=== PATIENT | female | born 1995 | race Caucasian/White ===

== ENCOUNTER 2016-11-16 16:41 | Emergency (ER) | payer OTHER ==
[~2016-11-16] VITALS: Ht 172.7 cm; Wt 60.0 kg
[2016-11-16 17:04] VITALS: Ht 172.7 cm; Wt 60.0 kg
[2016-11-16] MEDS ORDERED: SOD CHLORIDE 0.9% 1,000 ML IV STA (19:17)
[2016-11-16] MEDS ORDERED: ONDANSETRON 4 MG INJ IV STA (19:17)
[2016-11-16] MEDS ORDERED: KETOROLAC 30 MG INJ IV STA (19:17)
[2016-11-16 20:14] LABS: ADD SCAN DIFF NO
[2016-11-16 20:15] LABS: BASOPHILS % 0.3 % (0.0-2.0); EOSINOPHILS # 0.1 10^3/ul (0.0-0.5); EOSINOPHILS % 0.7 % (0.0-7.0); HEMATOCRIT 42.3 % (37.0-47.0); HEMOGLOBIN 13.8 g/dl (12.0-16.0); LYMPHOCYTES # 3.5 10^3/ul (0.8-2.9); LYMPHOCYTES % 49.5 % (18.0-55.0); MEAN CORPUSCULAR HGB CONC 32.6 g/dl (32.0-37.0); MEAN PLATELET VOLUME 11.2 fl (7.4-10.4); MONOCYTE # 0.5 10^3/ul (0.3-0.9); MONOCYTES % 7.1 % (0.0-13.0); NEUTROPHILS % 42.1 % (30.0-74.0); PLATELET COUNT 206 10^3/UL (140-415); RED CELL DISTRIBUTION WIDTH 12.4 % (11.5-14.5); WHITE BLOOD COUNT 7.1 10^3/ul (4.8-10.8)
[2016-11-16 20:24] LABS: ALBUMIN 4.6 g/dl (3.3-4.9)
[2016-11-16 20:25] LABS: POTASSIUM 3.4 mmol/L (3.5-5.1)
[2016-11-16 20:27] LABS: BILIRUBIN,INDIRECT 0.2 mg/dl (0-1.1); BILIRUBIN,TOTAL 0.2 mg/dl (0.2-1.3); CREATININE 0.81 mg/dl (0.44-1.00)
[2016-11-16 20:28] LABS: ALBUMIN/GLOBULIN RATIO 1.39; CALCIUM 9.2 mg/dl (8.4-10.2); TOTAL PROTEIN 7.9 g/dl (6.1-8.1)
[2016-11-16 21:03] LABS: ADD UMIC NO; URINE BILIRUBIN (Dip) NEGATIVE (NEGATIVE); URINE BLOOD (Dip) NEGATIVE (NEGATIVE); URINE COLOR LT. YELLOW (YELLOW); URINE GLUCOSE (Dip) NEGATIVE (NEGATIVE); URINE KETONES (Dip) NEGATIVE (NEGATIVE); URINE LEUKOCYTE ESTERASE (Dip) NEGATIVE (NEGATIVE); URINE NITRITE (Dip) NEGATIVE (NEGATIVE); URINE TOTAL PROTEIN (Dip) NEGATIVE (NEGATIVE); URINE UROBILINOGEN (Dip) 0.2 E.U./dL (0.1-1.0)
--- NOTE | 2016-11-16 21:29 | ERD ---
ER Documentation Chief Complaint Date/Time DATE: 11/16/16 TIME: 21:28 Chief Complaint bilat flank pain 3 days post yeast infect HPI This is a 21-year-old female presents to the emergency room for evaluation of lower abdominal pain and cramping of bilateral flank pain for the past 3 days. The patient states that she is also had vaginal discharge and mild painful urination. This patient does state that she has been treated for a yeast infection and has been given 4 doses of Diflucan however she still having pain, and discharge. ROS All systems reviewed and are negative except as per history of present illness. Medications Home Meds No Active Prescriptions or Reported Meds Allergies Allergies: Coded Allergies: Penicillins (Verified Allergy, Unknown, 11/16/16) PMhx/Soc Medical and Surgical Hx: pt denies Medical Hx, pt denies Surgical Hx Hx Alcohol Use: No Hx Substance Use: No Hx Tobacco Use: No Smoking Status: Never smoker Physical Exam Vitals Vital Signs Date Time Temp Pulse Resp B/P Pulse Ox O2 Delivery O2 Flow Rate FiO2 11/16/16 19:25 99.0 70 18 111/73 100 Room Air 11/16/16 17:04 99.0 87 18 136/84 100 Physical Exam Const: No acute distress Head: Atraumatic Eyes: Normal Conjunctiva ENT: Normal External Ears, Nose and Mouth. Neck: Full range of motion..~ No meningismus. Resp: Clear to auscultation bilaterally Cardio: Regular rate and rhythm, no murmurs Abd: Soft, non tender, non distended. Normal bowel sounds Skin: No petechiae or rashes Back: No midline or flank tenderness Ext: No cyanosis, or edema exam: Yellow discharge from v cervical loss, no cervical motion tenderness, no tenderness over ovaries Neur: Awake and alert Psych: Normal Mood and Affect Result Diagram: 11/16/16192911/16/161929 Results 24 hrs Laboratory Tests Test 11/16/16 19:20 11/16/16 19:30 Urine Bilirubin NEGATIVE Urine Clarity CLEAR Urine Color LT. YELLOW Urine Glucose NEGATIVE% Urine Hemoglobin NEGATIVE Urine Ketones NEGATIVE Urine Leukocyte Esterase NEGATIVE Urine Nitrite NEGATIVE Urine Specific [place] 1.015 Urine Total Protein NEGATIVE Urine Urobilinogen 0.2 E.U./dL Urine pH 6.0 Alanine Aminotransferase (ALT/SGPT) 25IU/L Albumin 4.6g/dl Albumin/Globulin Ratio 1.39 Alkaline Phosphatase 46IU/L Anion Gap 17 Aspartate Amino Transf (AST/SGOT) 27IU/L Basophils # 0.010^3/ul Basophils % 0.3% Blood Urea Nitrogen 11mg/dl Calcium Level 9.2mg/dl Carbon Dioxide Level 28mmol/L Chloride Level 102mmol/L Creatinine 0.81mg/dl Direct Bilirubin 0.00mg/dl Eosinophils # 0.110^3/ul Eosinophils % 0.7% Globulin 3.30g/dl Glucose Level 73mg/dl Hematocrit 42.3% Hemoglobin 13.8g/dl Indirect Bilirubin 0.2mg/dl Lipase 77U/L Lymphocytes # 3.510^3/ul Lymphocytes % 49.5% Mean Corpuscular Hemoglobin 30.0pg Mean Corpuscular Hemoglobin Concent 32.6g/dl Mean Corpuscular Volume 92.0fl Mean Platelet Volume 11.2fl Monocytes # 0.510^3/ul Monocytes % 7.1% Neutrophils # 3.010^3/ul Neutrophils % 42.1% Nucleated Red Blood Cells # 0.010^3/ul Nucleated Red Blood Cells % 0.0/100WBC Platelet Count 24370^3/UL Potassium Level 3.4mmol/L Red Blood Count 4.6010^6/ul Red Cell Distribution Width 12.4% Sodium Level 144mmol/L Total Bilirubin 0.2mg/dl Total Protein 7.9g/dl White Blood Count 7.110^3/ul Current Medications Medications (Trade) Dose Ordered Sig/Adalgisa Route PRN Reason Start Time Stop Time Status Last Admin Dose Admin Sodium Chloride (NS) 1,000 ml @ 1,000 mls/hr Q1H STAT IV 11/16/16 19:17 11/16/16 20:16 DC 11/16/16 19:31 Ondansetron HCl (Zofran Inj) 4 mg ONCE STAT IV 11/16/16 19:17 11/16/16 19:18 DC 11/16/16 19:32 Ketorolac Tromethamine (Toradol) 30 mg ONCE STAT IV 11/16/16 19:17 11/16/16 19:18 DC 11/16/16 19:32 Azithromycin 1000 mg 1,000 mg ONCE ONCE PO 11/16/16 21:30 11/16/16 21:31 Ceftriaxone Sodium/Sodium Chloride (Rocephin/NS) 50 ml @ 0 mls/hr ONCE ONCE IVPB 11/16/16 21:30 11/16/16 21:31 Metronidazole (Flagyl) 2,000 mg ONCE ONCE PO 11/16/16 21:30 11/16/16 21:31 Procedures/MDM This 21-year-old female presents to the ER for evaluation of vaginal discharge and flank pain and abdominal discomfort. When I evaluated this patient she did state that she has been treated for multiple yeast infections and has had multiple episodes of vaginal discharge. She is having unprotected sex at this time with one partner. I did do a pelvic exam and noted yellow discharge from the hospital are this patient did have swabs obtained and the patient was treated for GC, chlamydia, and Trichomonas in the emergency room with azithromycin 1 g, Flagyl 2 g, and Rocephin 500 mg IV piggyback. This patient will be discharged with a prescription for doxycycline at this time and a referral for [employer]. Departure Diagnosis: Primary Impression: Vaginal discharge Additional Impression: Flank pain Condition: Stable TOMI GIFFORD DO Nov 16, 2016 21:29
[2016-11-16] MEDS ORDERED: metroNIDAZOLE 500 MG TAB PO ONE (21:30)
[2016-11-16] MEDS ORDERED: AZITHROMYCIN 250 MG TAB PO ONE (21:30)
[2016-11-16] MEDS ORDERED: CEFTRIAXONE 500 MG in SOD CHLORIDE 0.9% 50 ML IVPB ONE (21:30)
[2016-11-16] MEDS ORDERED: DOXY100T20 PO (21:33)
[2016-11-16 22:53] VITALS: BP 119/72; PULSE 76; RESP 17; TEMP 98.2
== END 2016-11-16 22:53 | disposition home or self-care (01) ==
LOC: E/R 16:41
DX: N89.8 Other specified noninflammatory disorders of vagina (principal)
CPT/HCPCS: 36415; 80053; 81003; 83690; 85025; 96361; 96365; 96375; J0696; J1885; J2405; J7030; Z7502; Z7610